=== PATIENT | male | born 1955 | race Hispanic/Latino ===

== ENCOUNTER 2018-02-21 12:41 | Emergency (ER) | payer SELFPAY ==
[~2018-02-21] VITALS: Ht 157.5 cm; Wt 103.8 kg
[2018-02-21 14:00] LABS: HEMATOCRIT 41.6 % (39.0-50.0); HEMOGLOBIN 14.4 g/dl (14.0-18.0); IMMATURE GRANULOCYTES 0.7 % (0.0-5.0); MEAN CELL VOLUME 98.6 fL CALC (80.0-100.0); MEAN CORPUSCULAR HGB 34.1 pG CALC (26.0-32.0); MEAN CORPUSCULAR HGB CONC 34.6 g/L CALC (32.0-36.0); NEUT# 2.55 thou/uL (1.82-7.42); RED BLOOD COUNT 4.22 mill/uL (4.70-6.10); RED CELL DISTRI WIDTH 13.5 % (11.5-15.5)
[2018-02-21 14:08] LABS: ALBUMIN 3.5 g/dL (3.2-5.0); ALKALINE PHOSPHATASE 221 u/l (38-126); ANION GAP 15 (6-22 (CALC)); BILIRUBIN, TOTAL 1.1 mg/dL (0.0-1.4); BUN 11 mg/dL (8-23); BUN/CREATININE RATIO 22 (12-20 (CALC)); CARBON DIOXIDE 24 mmol/l (22-30); CHLORIDE 107 mmol/l (95-108); CREATININE 0.5 mg/dL (0.7-1.3); ETHYL ALCOHOL 163 mg/dl (0-30); GFR > 60 ML/MIN (>=60 (CALC)); GFR FOR AFR.AMER. > 60 ML/MIN (>=60 (CALC)); MAGNESIUM 1.3 mg/dL (1.6-2.3); POTASSIUM 3.8 mmol/l (3.5-5.1); SGOT/AST 90 u/l (19-48); SODIUM 142 mmol/l (137-146); TOTAL PROTEIN 7.4 g/dL (6.3-8.2)
[2018-02-21 14:45] VITALS: BP 141/95
== END 2018-02-21 15:50 | disposition home or self-care (01) | DRG 897 ==
LOC: ED 12:41
PROVIDERS: Emergency Medicine
DX: F10.10 Alcohol abuse, uncomplicated (principal)

== ENCOUNTER 2020-01-18 16:11 | Observation (INO) | payer SELFPAY ==
[~2020-01-18] VITALS: Ht 157.5 cm; Wt 100.0 kg
--- NOTE | 2020-01-18 16:17 | NUR ---
PT TO ROOM VIA EMS. PT STATES THAT HE HAS HAD 12 BEERS TODAY. PT IS UNKEPT AND HOMELESS, PT DENIES ANY COMPLAINTS AT THIS TIME. PT WAS FOUND SITTING BEHIND AN AUTO PART STORE, NO INJURIES OBSERVED.
[2020-01-18 16:41] LABS: ALBUMIN 3.5 g/dL (3.2-5.0); ALKALINE PHOSPHATASE 250 u/l (38-126); AMYLASE 156 u/l (30-110); ANION GAP 13 (6-22 (CALC)); BUN 5 mg/dL (8-23); BUN/CREATININE RATIO 11 (12-20 (CALC)); CARBON DIOXIDE 27 mmol/l (22-30); CHLORIDE 107 mmol/l (95-108); CREATININE 0.5 mg/dL (0.7-1.3); GFR > 60 ML/MIN (>=60 (CALC)); GFR FOR AFR.AMER. > 60 ML/MIN (>=60 (CALC)); LIPASE 587 u/l (23-300); POTASSIUM 3.4 mmol/l (3.5-5.1); SGOT/AST 132 u/l (19-48); SODIUM 144 mmol/l (137-146); TOTAL PROTEIN 7.2 g/dL (6.3-8.2)
[2020-01-18 16:42] LABS: HEMATOCRIT 38.1 % (39.0-50.0); HEMOGLOBIN 12.9 g/dl (14.0-18.0); MEAN CELL VOLUME 97.2 fL CALC (80.0-100.0); MEAN CORPUSCULAR HGB 32.9 pG CALC (26.0-32.0); MEAN CORPUSCULAR HGB CONC 33.9 g/dL CAL (32.0-36.0); NEUT# 1.14 thou/uL (1.82-7.42); RED BLOOD COUNT 3.92 mill/uL (4.70-6.10); RED CELL DISTRI WIDTH 14.6 % (11.5-15.5)
[2020-01-18 16:52] LABS: MYOGLOBIN 133 ng/mL (0 - 121)
[2020-01-18 16:56] LABS: BILIRUBIN, TOTAL 1.6 mg/dL (0.0-1.4); ETHYL ALCOHOL 406 mg/dl (0-30)
--- NOTE | 2020-01-18 17:01 | NUR ---
PT CRAWLED OUT OF BED, PULLED OUT IV, AND BEGAN TO URINATE ON THE FLOOR. PT WAS PLACED BACK IN BED, CLOTHING REMOVED AND PLACED IN GOWN.
[2020-01-18 17:09] LABS: URINE BILIRUBIN - DIPSTICK NEGATIVE (NEGATIVE); URINE BLOOD DIPSTICK NEGATIVE (NEGATIVE); URINE COLOR YELLOW; URINE GLUCOSE - DIPSTICK NEGATIVE (NEGATIVE); URINE KETONE NEGATIVE (NEGATIVE); URINE LEUK ESTERASE TRACE (NEGATIVE); URINE NITRITE - DIPSTICK NEGATIVE (Negative); URINE PH 6.5 (4.5-8.0); URINE PROTEIN - DIPSTICK NEGATIVE (NEG-TRACE); URINE SPECIFIC GRAVITY <=1.005
--- NOTE | 2020-01-18 18:01 | NUR ---
PT ASLEEP ON STRETCHER
--- NOTE | 2020-01-18 19:00 | NUR ---
REPORT GIVEN TO DANG BRIZUELA
--- NOTE | 2020-01-18 19:18 | NUR ---
PT A/O. VOIDED AT BEDSIDE WITH ASSIST. TO CT VIA STRETCHER.
--- NOTE | 2020-01-18 20:12 | NUR ---
PT ATTEMPTING TO GET OUT OF BED....ASSISTED WITH URINAL..AND STILL PULLS OUT OF URINAL AND CONTINUES TO URINATE ON THE FLOOR.
--- NOTE | 2020-01-18 21:00 | NUR ---
PT INCONT OF URINE AND SCANT AMT OF MUSHY STOOL.
--- NOTE | 2020-01-18 21:04 | NUR ---
ANOTHER BED BATH DONE AND PT VOIDED AGAIN.
--- NOTE | 2020-01-18 21:10 | NUR ---
SITTER AT BEDSIDE. PT RESTING. VSS...HR STARTING TO ROTOFORMER BACKTENDER. AFIB.
--- NOTE | 2020-01-18 21:29 | NUR ---
DR COOMBS NOTIFIED OF HR INCREASING TO 130-140/A FIB.
--- NOTE | 2020-01-18 23:03 | NUR ---
AT BEDSIDE TO RE-EVAL. 2ND IV SITE STARTED FOR ANTIBIOTICS. CULTURES OBTAINED BY SELF AND ONE SET BY LAB. PT IS ALERT. CONVERSIVE IN UKRAINIAN WITH E COMMERCE MANAGER. NO NEED TO MEDICATE FOR AFIB UNLESS RATE IS SUSTAINED.
--- NOTE | 2020-01-18 23:10 | NUR ---
DR COOMBS NOTIFIED OF BP 166/99...NO NEED TO MEDICATE/JUST MONITOR.
--- NOTE | 2020-01-18 23:18 | NUR ---
REPORT TO YESI/ICU NURSE.
--- NOTE | 2020-01-18 23:30 | NUR ---
TO ICU FOR MED-SURG OVERFLOW BED. VIA STRETCHER WITH PORTABLE MONITOR. BANANA BAG INFUSING VIA PUMP. 2 NS BAGS INFUSING. ZOSYN READY TO HANG. PT VOIDED A TOTAL OF 1200 CC'S OF URINE AND WAS INCONT IN BED PLUS WHAT MISSED THE URINAL. PT AMBULATED TO BED WITH ASSIST OF 2 NURSES. SOMEWHAT UNSTEADY.
[2020-01-18 23:45] VITALS: BP 168/98
--- NOTE | 2020-01-18 23:45 | NUR ---
RECEVIED FROM ER VIA STRETCHER TO ICU-5. PATIENT ABLE TO AMBULATE WITH ASSIST FROM STRETCHER TO BED. SLT UNSTEADY ON FEET. PLACED ON BUCKET HOOKER SHOWING AFIB, VARIABLE HEART RATE. RESP NON-LABORED, BREATH SOUNDS CLEAR. NO PERIPHERAL EDEMA, PULSES PALPABLE. SALINE LOCK IN RH AND IV IN RFA WITH BANANA BAG INFUSING AT 125 ML/HR. BOTH IV SITES BENIGN. ORIENTED TO SURROUNDINGS AND EXPLAINED PLAN OF CARE. ADMISSION ASSESSMENT COMPLETED. PATIENT IS [place] SPEAKING, FIRE PREVENTION CAPTAIN MARTIN MENDEZ/RN. PATIENT ORIENTED TO SURROUNDINGS. CALL WARD IN REACH.
[2020-01-19] VITALS (8 sets, daily range): BP systolic 106–168; BP diastolic 67–99
--- NOTE | 2020-01-19 00:15 | NUR ---
PT CALLS AND REQUEST STAND BY WHILE SHE USES BSC, PT VOIDED AND MOVED BACK TO BED W/O INCIDENT. BSC EMPTIED OF CLEAR YELLOW URINE. PT STATES "I GUESS IM GOING TO GET A PACEMAKER TUESDAY", ASKED PT IF SHE REMEMBERED DECLINING TRANSFER ON 01/17. PT STATES SHE DOES REMEMBER BUT "I GUESS IF I HAVE TO HAVE IT I'LL HAVE IT". WILL ENDORSE TO NEXT SHIFTS NURSE. PT DENIES FURTHER NEEDS. CALL WARD WITHIN REACH, AGREES TO CALL PRN.
--- NOTE | 2020-01-19 00:15 | NUR ---
VOIDED USING URINAL CLEAR PALE YELLOW URINE.
--- NOTE | 2020-01-19 01:00 | NUR ---
ASLEEP. RESP NON-LABORED AT REST. AFIB ON MONITOR.
--- NOTE | 2020-01-19 02:00 | NUR ---
PATIENT AWAKE, RESTLESS. SITTER AT BEDSIDE ATTEMPTING TO CALM PATIENT WITH VERBAL CUES. REMAINS AFIB ON MONITOR, HR HAD BEEN IN THE 80'S-90'S WHEN ASLEEP, NOW HEART UP TO 140'S-160'S.
--- NOTE | 2020-01-19 02:15 | NUR ---
PATIENT PULLING MONITOR OFF AND ATTEMPTING TO PULL IV OUT. PATIENT STOOD AT SIDE OF BED AND URINATED LARGE AMOUNT ON THE FLOOR. STAFF ATTEMPTED TO HELP PATIENT BACK TO BED AND HE ATTEMPTED TO DRAG THEM DOWN. PATIENT RETURNED TO BED WITH 3 PERSON ASSIST. SOFT WRIST RESTRAINTS APPLIED ORDERED FOR PATIENT AND STAFF SAFETY. MEDICATED WITH ATIVAN 1 MG IVP ORDERED.
--- NOTE | 2020-01-19 02:30 | NUR ---
PATIENT IN BED RESTING QUIETLY AT THIS TIME. REMIANS AFIB, HR COMING DOWN NOW THAT PATIENT IS AT REST.
--- NOTE | 2020-01-19 03:00 | NUR ---
SLEEPING SOUNDLY, SNORING. O2 SAT OCC DROPS TO 88-91% O2 APPLIED AT 2 L NC O2 SAT 97% HR IN THE 90'S WHILE AT REST.
--- NOTE | 2020-01-19 04:00 | NUR ---
RESTING WITH EYES CLOSED AT THIS TIME. VSS. RESP NON-LABORED. O2 ON AT 2 L NC. O2 SAT 98% MONITOR AFIB, HR 90'S. REMAINS IN BILATERAL SOFT WRIST RESTRAINTS.
--- NOTE | 2020-01-19 06:30 | NUR ---
BLOOD DRAWN FOR AM LABS. MONITOR CONTINUES TO SHOW AFIB, HR IMMEDIATELY INCREASES WHEN PATIENT AWAKENS. SOFT WRIST RETRAINTS REMAIN IN PLACE.
[2020-01-19 06:42] LABS: HEMATOCRIT 39.1 % (39.0-50.0); HEMOGLOBIN 13.5 g/dl (14.0-18.0); MEAN CORPUSCULAR HGB 34.5 pG CALC (26.0-32.0); RED BLOOD COUNT 3.91 mill/uL (4.70-6.10)
[2020-01-19 06:43] LABS: MEAN CORPUSCULAR HGB CONC 34.5 g/dL CAL (32.0-36.0); RED CELL DISTRI WIDTH 15.2 % (11.5-15.5)
[2020-01-19 06:44] LABS: NEUT# 1.4 thou/uL (1.82-7.42)
[2020-01-19 06:55] LABS: ALKALINE PHOSPHATASE 149 u/l (38-126); ANION GAP 8 (6-22 (CALC)); BUN 4 mg/dL (8-23); BUN/CREATININE RATIO 9 (12-20 (CALC)); CARBON DIOXIDE 29 mmol/l (22-30); CHLORIDE 112 mmol/l (95-108); CREATININE 0.4 mg/dL (0.7-1.3); GFR > 60 ML/MIN (>=60 (CALC)); GFR FOR AFR.AMER. > 60 ML/MIN (>=60 (CALC)); POTASSIUM 3.4 mmol/l (3.5-5.1); SGOT/AST 110 u/l (19-48); SODIUM 146 mmol/l (137-146); TOTAL PROTEIN 6.5 g/dL (6.3-8.2)
--- NOTE | 2020-01-19 07:30 | NUR ---
PT RESTING IN BED, NO SIGNS OF DISTRESS NOTED, RESP EVEN AND UNLABORED. PT ALERT AND ORIENTED TO PERSON AND PLACE BUT NOT TIME, DISCUSSED POC, PT UZBEK SPEAKING, EXPANDING MACHINE OPERATOR UZBEK SPEAKING. PT AGREED TO POC, PT IS NPO UNTIL EVALUATED BY MD. MOUTH SWABS GIVEN, PT REMOVED FROM RESTRAINTS AT THIS TIME. ASSESSMENT COMPLETED, CALL LIGHT IN REACH,SITTER AT BEDSIDE, CONTINUE TO MONITOR.
--- NOTE | 2020-01-19 09:26 | NUR ---
PT GETTING UP OUT OF BED, SITTER AT BEDSIDE ASSISTING PT TO USE URINAL. PT ASKING FOR WATER, INFORMED PT AWAITING UNTIL SEEN BY MD. PT LAYED BACK IN BED WITH EYES CLOSED. CALL LIGHT IN REACH,CONTINUE TO MONITOR.
--- NOTE | 2020-01-19 09:34 | NUR ---
PT SITTING UP NOTED TREMORS ARE MORE SEVERE, PT MEDICATED WITH ATIVAN AT THIS TIME. CALL LIGHT IN REACH, SITTER AT BEDSIDE, CONTINUE TO MONITOR.
--- NOTE | 2020-01-19 11:27 | NUR ---
STATE GAME PROTECTOR AT BEDSIDE, TO DISCUSS POC, DELIVERY SUPERVISOR AT BEDSIDE. PT STATES HE IS HOMELESS AND NEEDS HELP FOR HOUSING, STATE GAME PROTECTOR ASKED IF PT WOULD LIKE TO RETURN TO [place], PT STATES THAT IF HE COULD GET ASSISTANCE TO [place] HE WOULD GO.
--- NOTE | 2020-01-19 12:28 | NUR ---
DISCUSSED NEW MEDICATION WITH PT, PG AGREES TO TAKE MEDICATION. PT SITTING ON SIDE OF BED EATING LUNCH. CONTINUE TO MONITOR.
[2020-01-19 13:10] LABS: INTERNATIONAL NORMALIZED RATIO 1.2 RATIO (0.7-1.3); PROTHROMBIN TIME 11.8 SECONDS (9.0-12.5)
--- NOTE | 2020-01-19 13:20 | NUR ---
PT RESTING IN BED, NO SIGNS OF DISTRESS NOTED, RESP EVEN AND UNLABORED. PT MEDICATED PER MAR. DISCUSSED MEDICATIONS WITH PT, PT ASKS WHEN WILL HE BE DISCHARGED INFORMED PT NOT TODAY, PT VERBALIZED UNDERSTANDING. CALL LIGHT IN REACH,CONTINUE TO MONITOR.
--- NOTE | 2020-01-19 14:38 | NUR ---
PT RESTING IN BED, DISCUSSED ANTIBIOTIC, PT VERBALIZED UNDERSTANDING. CALL LIGHT IN REACH,CONTINUE TO MONITOR.
--- NOTE | 2020-01-19 17:20 | NUR ---
PT GETTING OUT OF BED PULLING LINES, PT ASKING TO LEAVE INFORMED PT THAT HE HAS THE RIGHT TO LEAVE AT ANY TIME, PT STATES HE IS FRUSTRATED WITH THIS PLACE AND WANTS TO LEAVE, PT PULLED OUT HIS IV, AMA FORM GIVEN PT SIGNED. CALL MADE TO NOTIFIED. IV CATHETER INTACT. WRAPPED WITH COBAN. DINNER AND SCRUBS PROVIDED. PT'S BELONGINGS PLACED IN BELONGINGS BAG DUE TO CLOTHES BEING WET. PT EATING DINNER CONTINUE TO MONITOR.
--- NOTE | 2020-01-19 17:40 | NUR ---
CALLED AND NOTIFIED PT HE WAS CONSULTED FOR IS LEAVING A.
--- NOTE | 2020-01-19 17:44 | NUR ---
Discharge instructions given. Patient verbalizes understanding of same. Discharged in stable condition via Wheelchair to [facility] as pt requested with i. All belongings sent with pt.
== END 2020-01-19 17:45 | disposition left against medical advice (07) | DRG 894 ==
LOC: ED 16:11 → ED-I 17:14 → ED 17:14 → ED-I 20:04 → ED 22:44 → ICU 22:54 → ED 22:54 → ICU 01-19 17:45
PROVIDERS: Emergency Medicine; ADMIT Internal Medicine; ATTEND Internal Medicine
DX: F10.229 Alcohol dependence with intoxication, unspecified (principal); D61.818 Other pancytopenia; I48.91 Unspecified atrial fibrillation; G31.2 Degeneration of nervous system due to alcohol; K70.30 Alcoholic cirrhosis of liver without ascites; K80.20 Calculus of gallbladder without cholecystitis without obstruction; K75.9 Inflammatory liver disease, unspecified; R76.8 Other specified abnormal immunological findings in serum; Z59.0 Homelessness; Z20.828 Contact with and (suspected) exposure to other viral communicable diseases
CPT/HCPCS: J2060; Q9967

== ENCOUNTER 2020-02-02 18:18 | Inpatient (IN) | payer SELFPAY ==
[~2020-02-02] VITALS: Ht 157.5 cm; Wt 85.1 kg
[2020-02-02 19:53] LABS: HEMATOCRIT 41.7 % (39.0-50.0); HEMOGLOBIN 15.2 g/dl (14.0-18.0); MEAN CELL VOLUME 94.6 fL CALC (80.0-100.0); MEAN CORPUSCULAR HGB 34.5 pG CALC (26.0-32.0); MEAN CORPUSCULAR HGB CONC 36.5 g/dL CAL (32.0-36.0); NEUT# 10.75 thou/uL (1.82-7.42); RED BLOOD COUNT 4.41 mill/uL (4.70-6.10); RED CELL DISTRI WIDTH 13.4 % (11.5-15.5)
[2020-02-02 20:01] LABS: INTERNATIONAL NORMALIZED RATIO 1.4 RATIO (0.7-1.3); PROTHROMBIN TIME 13.7 SECONDS (9.0-12.5)
[2020-02-02 20:03] LABS: ALKALINE PHOSPHATASE 103 u/l (38-126); BUN 18 mg/dL (8-23); BUN/CREATININE RATIO 22 (12-20 (CALC)); CARBON DIOXIDE 24 mmol/l (22-30); CREATININE 0.8 mg/dL (0.7-1.3); GFR > 60 ML/MIN (>=60 (CALC)); GFR FOR AFR.AMER. > 60 ML/MIN (>=60 (CALC)); LIPASE 58 u/l (23-300); SGOT/AST 86 u/l (19-48); TOTAL PROTEIN 6.5 g/dL (6.3-8.2)
[2020-02-02 20:09] LABS: ANION GAP 18 (6-22 (CALC)); BILIRUBIN, TOTAL 3.7 mg/dL (0.0-1.4); CHLORIDE 90 mmol/l (95-108); POTASSIUM 2.6 mmol/l (3.5-5.1); SODIUM 129 mmol/l (137-146)
[2020-02-02 20:24] LABS: ETHYL ALCOHOL 154 mg/dl (0-30)
[2020-02-02 21:38] LABS: URINE BILIRUBIN - DIPSTICK NEGATIVE (NEGATIVE); URINE BLOOD DIPSTICK MODERATE (NEGATIVE); URINE COLOR YELLOW; URINE GLUCOSE - DIPSTICK NEGATIVE (NEGATIVE); URINE KETONE NEGATIVE (NEGATIVE); URINE LEUK ESTERASE NEGATIVE (NEGATIVE); URINE NITRITE - DIPSTICK NEGATIVE (Negative); URINE PROTEIN - DIPSTICK TRACE mg/dL (NEG-TRACE)
[2020-02-02 22:03] LABS: URINE SQUAMOUS EPITHELIAL CELL FEW EPI/hpf (0-FEW)
[2020-02-03] VITALS (14 sets, daily range): BP systolic 97–141; BP diastolic 52–86
[2020-02-03 04:35] LABS: ALKALINE PHOSPHATASE 69 u/l (38-126); BILIRUBIN, TOTAL 2.9 mg/dL (0.0-1.4); BUN 17 mg/dL (8-23); BUN/CREATININE RATIO 22 (12-20 (CALC)); CARBON DIOXIDE 23 mmol/l (22-30); CHLORIDE 100 mmol/l (95-108); CREATININE 0.7 mg/dL (0.7-1.3); GFR > 60 ML/MIN (>=60 (CALC)); GFR FOR AFR.AMER. > 60 ML/MIN (>=60 (CALC)); SGOT/AST 59 u/l (19-48); SODIUM 132 mmol/l (137-146)
[2020-02-03 05:14] LABS: ALBUMIN 2.2 g/dL (3.2-5.0); ANION GAP 11 (6-22 (CALC)); POTASSIUM 2.2 mmol/l (3.5-5.1)
[2020-02-04] VITALS (19 sets, daily range): BP systolic 124–181; BP diastolic 73–117
[2020-02-04 05:34] LABS: IMMATURE GRANULOCYTES 1.1 % (0.0-5.0); MEAN CELL VOLUME 97.3 fL CALC (80.0-100.0); MEAN CORPUSCULAR HGB 34.1 pG CALC (26.0-32.0); NEUT# 13.64 thou/uL (1.82-7.42); RED BLOOD COUNT 3.7 mill/uL (4.70-6.10); RED CELL DISTRI WIDTH 14.5 % (11.5-15.5)
[2020-02-04 05:46] LABS: ALBUMIN 2.1 g/dL (3.2-5.0); ALKALINE PHOSPHATASE 87 u/l (38-126); ANION GAP 9 (6-22 (CALC)); BILIRUBIN, TOTAL 2.7 mg/dL (0.0-1.4); BUN 21 mg/dL (8-23); BUN/CREATININE RATIO 24 (12-20 (CALC)); CARBON DIOXIDE 24 mmol/l (22-30); CHLORIDE 107 mmol/l (95-108); CREATININE 0.9 mg/dL (0.7-1.3); GFR > 60 ML/MIN (>=60 (CALC)); GFR FOR AFR.AMER. > 60 ML/MIN (>=60 (CALC)); HEMOGLOBIN 12.6 g/dl (14.0-18.0); MAGNESIUM 1.6 mg/dL (1.6-2.3); SGOT/AST 60 u/l (19-48); SODIUM 137 mmol/l (137-146); TOTAL PROTEIN 4.9 g/dL (6.3-8.2)
[2020-02-05] VITALS (9 sets, daily range): BP systolic 136–176; BP diastolic 88–109
[2020-02-05 05:05] LABS: HEMATOCRIT 40.8 % (39.0-50.0); IMMATURE GRANULOCYTES 1.2 % (0.0-5.0); MEAN CELL VOLUME 96.7 fL CALC (80.0-100.0); MEAN CORPUSCULAR HGB 33.2 pG CALC (26.0-32.0); MEAN CORPUSCULAR HGB CONC 34.3 g/dL CAL (32.0-36.0); NEUT# 7.41 thou/uL (1.82-7.42); RED BLOOD COUNT 4.22 mill/uL (4.70-6.10); RED CELL DISTRI WIDTH 14.6 % (11.5-15.5)
[2020-02-05 05:26] LABS: ALBUMIN 2.3 g/dL (3.2-5.0); ALKALINE PHOSPHATASE 93 u/l (38-126); ANION GAP 8 (6-22 (CALC)); BILIRUBIN, TOTAL 3.7 mg/dL (0.0-1.4); BUN 21 mg/dL (8-23); BUN/CREATININE RATIO 22 (12-20 (CALC)); CARBON DIOXIDE 28 mmol/l (22-30); CHLORIDE 112 mmol/l (95-108); CREATININE 0.9 mg/dL (0.7-1.3); GFR > 60 ML/MIN (>=60 (CALC)); GFR FOR AFR.AMER. > 60 ML/MIN (>=60 (CALC)); MAGNESIUM 1.2 mg/dL (1.6-2.3); SGOT/AST 65 u/l (19-48); SODIUM 145 mmol/l (137-146); TOTAL PROTEIN 5.5 g/dL (6.3-8.2)
[2020-02-06] VITALS (25 sets, daily range): BP systolic 123–177; BP diastolic 78–117
[2020-02-06 05:33] LABS: HEMATOCRIT 39.1 % (39.0-50.0); HEMOGLOBIN 13.6 g/dl (14.0-18.0); IMMATURE GRANULOCYTES 1.8 % (0.0-5.0); MEAN CORPUSCULAR HGB 34.1 pG CALC (26.0-32.0); MEAN CORPUSCULAR HGB CONC 34.8 g/dL CAL (32.0-36.0); NEUT# 4.78 thou/uL (1.82-7.42); RED BLOOD COUNT 3.99 mill/uL (4.70-6.10); RED CELL DISTRI WIDTH 15.4 % (11.5-15.5)
[2020-02-06 05:34] LABS: ALKALINE PHOSPHATASE 66 u/l (38-126); ANION GAP 6 (6-22 (CALC)); BILIRUBIN, TOTAL 3.2 mg/dL (0.0-1.4); BUN 22 mg/dL (8-23); BUN/CREATININE RATIO 24 (12-20 (CALC)); CARBON DIOXIDE 26 mmol/l (22-30); CHLORIDE 119 mmol/l (95-108); CREATININE 0.9 mg/dL (0.7-1.3); GFR > 60 ML/MIN (>=60 (CALC)); GFR FOR AFR.AMER. > 60 ML/MIN (>=60 (CALC)); MAGNESIUM 1.5 mg/dL (1.6-2.3); POTASSIUM 3.2 mmol/l (3.5-5.1); SGOT/AST 39 u/l (19-48); SODIUM 149 mmol/l (137-146); TOTAL PROTEIN 5.2 g/dL (6.3-8.2)
[2020-02-07] VITALS (22 sets, daily range): BP systolic 137–178; BP diastolic 83–127
[2020-02-07 06:43] LABS: HEMATOCRIT 38.8 % (39.0-50.0); HEMOGLOBIN 12.9 g/dl (14.0-18.0); IMMATURE GRANULOCYTES 3.1 % (0.0-5.0); MEAN CELL VOLUME 100.8 fL CALC (80.0-100.0); MEAN CORPUSCULAR HGB 33.5 pG CALC (26.0-32.0); MEAN CORPUSCULAR HGB CONC 33.2 g/dL CAL (32.0-36.0); NEUT# 3.88 thou/uL (1.82-7.42); RED BLOOD COUNT 3.85 mill/uL (4.70-6.10); RED CELL DISTRI WIDTH 15.1 % (11.5-15.5)
[2020-02-07 06:54] LABS: ALBUMIN 2.1 g/dL (3.2-5.0); ALKALINE PHOSPHATASE 65 u/l (38-126); ANION GAP 7 (6-22 (CALC)); BILIRUBIN, TOTAL 2.6 mg/dL (0.0-1.4); BUN 17 mg/dL (8-23); BUN/CREATININE RATIO 21 (12-20 (CALC)); CARBON DIOXIDE 25 mmol/l (22-30); CHLORIDE 123 mmol/l (95-108); CREATININE 0.8 mg/dL (0.7-1.3); GFR > 60 ML/MIN (>=60 (CALC)); GFR FOR AFR.AMER. > 60 ML/MIN (>=60 (CALC)); POTASSIUM 3.5 mmol/l (3.5-5.1); SGOT/AST 39 u/l (19-48); SODIUM 152 mmol/l (137-146); TOTAL PROTEIN 5.4 g/dL (6.3-8.2)
[2020-02-08] VITALS (20 sets, daily range): BP systolic 135–190; BP diastolic 77–110
[2020-02-08 06:39] LABS: HEMATOCRIT 40.4 % (39.0-50.0); HEMOGLOBIN 13.4 g/dl (14.0-18.0); MEAN CELL VOLUME 101.5 fL CALC (80.0-100.0); MEAN CORPUSCULAR HGB 33.7 pG CALC (26.0-32.0); MEAN CORPUSCULAR HGB CONC 33.2 g/dL CAL (32.0-36.0); RED BLOOD COUNT 3.98 mill/uL (4.70-6.10); RED CELL DISTRI WIDTH 15.2 % (11.5-15.5)
[2020-02-08 10:54] LABS: ALBUMIN 2.2 g/dL (3.2-5.0); ALKALINE PHOSPHATASE 74 u/l (38-126); ANION GAP 7 (6-22 (CALC)); BILIRUBIN, TOTAL 2.4 mg/dL (0.0-1.4); BUN 15 mg/dL (8-23); BUN/CREATININE RATIO 19 (12-20 (CALC)); CARBON DIOXIDE 27 mmol/l (22-30); CHLORIDE 120 mmol/l (95-108); CREATININE 0.8 mg/dL (0.7-1.3); GFR > 60 ML/MIN (>=60 (CALC)); GFR FOR AFR.AMER. > 60 ML/MIN (>=60 (CALC)); POTASSIUM 3.4 mmol/l (3.5-5.1); SGOT/AST 31 u/l (19-48); SODIUM 151 mmol/l (137-146); TOTAL PROTEIN 5.8 g/dL (6.3-8.2)
[2020-02-09] VITALS (14 sets, daily range): BP systolic 111–149; BP diastolic 70–105
[2020-02-09 05:37] LABS: HEMATOCRIT 41.2 % (39.0-50.0); HEMOGLOBIN 13.7 g/dl (14.0-18.0); MEAN CELL VOLUME 101.2 fL CALC (80.0-100.0); MEAN CORPUSCULAR HGB 33.7 pG CALC (26.0-32.0); MEAN CORPUSCULAR HGB CONC 33.3 g/dL CAL (32.0-36.0); RED BLOOD COUNT 4.07 mill/uL (4.70-6.10); RED CELL DISTRI WIDTH 14.9 % (11.5-15.5)
[2020-02-09 06:23] LABS: ALBUMIN 2.1 g/dL (3.2-5.0); ALKALINE PHOSPHATASE 66 u/l (38-126); ANION GAP 5 (6-22 (CALC)); BUN 16 mg/dL (8-23); BUN/CREATININE RATIO 22 (12-20 (CALC)); CARBON DIOXIDE 29 mmol/l (22-30); CHLORIDE 116 mmol/l (95-108); CREATININE 0.8 mg/dL (0.7-1.3); GFR > 60 ML/MIN (>=60 (CALC)); GFR FOR AFR.AMER. > 60 ML/MIN (>=60 (CALC)); POTASSIUM 3.4 mmol/l (3.5-5.1); SGOT/AST 22 u/l (19-48); SODIUM 147 mmol/l (137-146); TOTAL PROTEIN 5.7 g/dL (6.3-8.2)
[2020-02-09 06:27] LABS: BILIRUBIN, TOTAL 1.4 mg/dL (0.0-1.4)
[2020-02-09 19:40] LABS: POTASSIUM 3.8 mmol/l (3.5-5.1)
[2020-02-09 19:41] LABS: MAGNESIUM 1.8 mg/dL (1.6-2.3)
[2020-02-10] VITALS (11 sets, daily range): BP systolic 112–157; BP diastolic 66–93
[2020-02-10 04:47] LABS: HEMATOCRIT 41.2 % (39.0-50.0); HEMOGLOBIN 13.8 g/dl (14.0-18.0); IMMATURE GRANULOCYTES 1.3 % (0.0-5.0); MEAN CELL VOLUME 99.8 fL CALC (80.0-100.0); MEAN CORPUSCULAR HGB 33.4 pG CALC (26.0-32.0); MEAN CORPUSCULAR HGB CONC 33.5 g/dL CAL (32.0-36.0); NEUT# 6.39 thou/uL (1.82-7.42); RED BLOOD COUNT 4.13 mill/uL (4.70-6.10); RED CELL DISTRI WIDTH 14.5 % (11.5-15.5)
[2020-02-10 05:21] LABS: ANION GAP 8 (6-22 (CALC)); BUN 17 mg/dL (8-23); BUN/CREATININE RATIO 24 (12-20 (CALC)); CARBON DIOXIDE 26 mmol/l (22-30); CHLORIDE 108 mmol/l (95-108); CREATININE 0.7 mg/dL (0.7-1.3); GFR > 60 ML/MIN (>=60 (CALC)); GFR FOR AFR.AMER. > 60 ML/MIN (>=60 (CALC)); POTASSIUM 3.5 mmol/l (3.5-5.1)
[2020-02-10 05:23] LABS: SODIUM 138 mmol/l (137-146)
[2020-02-11] VITALS (10 sets, daily range): BP systolic 111–151; BP diastolic 77–92
[2020-02-11 05:05] LABS: HEMATOCRIT 41.7 % (39.0-50.0); HEMOGLOBIN 14.2 g/dl (14.0-18.0); IMMATURE GRANULOCYTES 1.4 % (0.0-5.0); MEAN CELL VOLUME 98.8 fL CALC (80.0-100.0); MEAN CORPUSCULAR HGB 33.6 pG CALC (26.0-32.0); MEAN CORPUSCULAR HGB CONC 34.1 g/dL CAL (32.0-36.0); NEUT# 8.45 thou/uL (1.82-7.42); RED BLOOD COUNT 4.22 mill/uL (4.70-6.10); RED CELL DISTRI WIDTH 14.2 % (11.5-15.5)
[2020-02-11 08:24] LABS: ANION GAP 5 (6-22 (CALC)); BUN 17 mg/dL (8-23); BUN/CREATININE RATIO 24 (12-20 (CALC)); CARBON DIOXIDE 28 mmol/l (22-30); CHLORIDE 106 mmol/l (95-108); CREATININE 0.7 mg/dL (0.7-1.3); GFR > 60 ML/MIN (>=60 (CALC)); GFR FOR AFR.AMER. > 60 ML/MIN (>=60 (CALC)); POTASSIUM 3.3 mmol/l (3.5-5.1); SODIUM 136 mmol/l (137-146)
[2020-02-12 05:27] VITALS: BP 154/96
[2020-02-12 06:12] LABS: HEMATOCRIT 40.8 % (39.0-50.0); HEMOGLOBIN 13.8 g/dl (14.0-18.0); MEAN CELL VOLUME 99.5 fL CALC (80.0-100.0); MEAN CORPUSCULAR HGB 33.7 pG CALC (26.0-32.0); MEAN CORPUSCULAR HGB CONC 33.8 g/dL CAL (32.0-36.0); RED BLOOD COUNT 4.1 mill/uL (4.70-6.10)
[2020-02-12 06:35] LABS: ALBUMIN 2.2 g/dL (3.2-5.0); ALKALINE PHOSPHATASE 79 u/l (38-126); ANION GAP 8 (6-22 (CALC)); BILIRUBIN, TOTAL 1.6 mg/dL (0.0-1.4); BUN 16 mg/dL (8-23); BUN/CREATININE RATIO 26 (12-20 (CALC)); CARBON DIOXIDE 24 mmol/l (22-30); CHLORIDE 106 mmol/l (95-108); CREATININE 0.6 mg/dL (0.7-1.3); GFR > 60 ML/MIN (>=60 (CALC)); GFR FOR AFR.AMER. > 60 ML/MIN (>=60 (CALC)); SGOT/AST 33 u/l (19-48); SODIUM 134 mmol/l (137-146); TOTAL PROTEIN 5.9 g/dL (6.3-8.2)
[2020-02-12 06:40] LABS: POTASSIUM 4.2 mmol/l (3.5-5.1)
[2020-02-12 07:30] VITALS: BP 144/93
[2020-02-12 10:49] VITALS: BP 133/80
[2020-02-12 15:00] VITALS: BP 126/93
[2020-02-12 18:53] VITALS: BP 119/78
[2020-02-12 23:50] VITALS: BP 122/74
[2020-02-13] VITALS (7 sets, daily range): BP systolic 98–122; BP diastolic 56–93
[2020-02-13 05:26] LABS: HEMATOCRIT 40.3 % (39.0-50.0); HEMOGLOBIN 13.6 g/dl (14.0-18.0); IMMATURE GRANULOCYTES 3.2 % (0.0-5.0); MEAN CELL VOLUME 99.3 fL CALC (80.0-100.0); MEAN CORPUSCULAR HGB 33.5 pG CALC (26.0-32.0); MEAN CORPUSCULAR HGB CONC 33.7 g/dL CAL (32.0-36.0); NEUT# 4.93 thou/uL (1.82-7.42); RED BLOOD COUNT 4.06 mill/uL (4.70-6.10); RED CELL DISTRI WIDTH 14.2 % (11.5-15.5)
[2020-02-13 05:50] LABS: ANION GAP 8 (6-22 (CALC)); BUN 20 mg/dL (8-23); BUN/CREATININE RATIO 25 (12-20 (CALC)); CARBON DIOXIDE 25 mmol/l (22-30); CHLORIDE 109 mmol/l (95-108); CREATININE 0.8 mg/dL (0.7-1.3); GFR > 60 ML/MIN (>=60 (CALC)); GFR FOR AFR.AMER. > 60 ML/MIN (>=60 (CALC)); MAGNESIUM 1.4 mg/dL (1.6-2.3); POTASSIUM 3.6 mmol/l (3.5-5.1); SODIUM 138 mmol/l (137-146)
[2020-02-14] VITALS (8 sets, daily range): BP systolic 96–131; BP diastolic 48–88
[2020-02-15 04:25] VITALS: BP 115/64
[2020-02-15 08:48] VITALS: BP 128/88
[2020-02-15 11:00] VITALS: BP 90/47
[2020-02-15 15:16] VITALS: BP 106/55
[2020-02-15 19:25] VITALS: BP 112/69
[2020-02-15 23:55] VITALS: BP 123/73
[2020-02-16 04:10] VITALS: BP 129/82
[2020-02-16 04:49] LABS: HEMOGLOBIN 13.2 g/dl (14.0-18.0); MEAN CELL VOLUME 102.6 fL CALC (80.0-100.0); MEAN CORPUSCULAR HGB 33.8 pG CALC (26.0-32.0); RED BLOOD COUNT 3.9 mill/uL (4.70-6.10); RED CELL DISTRI WIDTH 14.1 % (11.5-15.5)
[2020-02-16 05:22] LABS: ALBUMIN 2.1 g/dL (3.2-5.0); ALKALINE PHOSPHATASE 91 u/l (38-126); ANION GAP 8 (6-22 (CALC)); BILIRUBIN, TOTAL 1.9 mg/dL (0.0-1.4); BUN 12 mg/dL (8-23); BUN/CREATININE RATIO 20 (12-20 (CALC)); CARBON DIOXIDE 24 mmol/l (22-30); CHLORIDE 108 mmol/l (95-108); CREATININE 0.6 mg/dL (0.7-1.3); GFR > 60 ML/MIN (>=60 (CALC)); GFR FOR AFR.AMER. > 60 ML/MIN (>=60 (CALC)); POTASSIUM 4.1 mmol/l (3.5-5.1); SGOT/AST 34 u/l (19-48); SODIUM 136 mmol/l (137-146); TOTAL PROTEIN 5.5 g/dL (6.3-8.2)
[2020-02-16 07:33] VITALS: BP 121/80
[2020-02-16 11:01] VITALS: BP 95/41
[2020-02-16 14:30] VITALS: BP 105/40
[2020-02-16 19:40] VITALS: BP 99/57
[2020-02-16 23:20] VITALS: BP 113/61
[2020-02-17 04:10] VITALS: BP 108/78
[2020-02-17 07:42] VITALS: BP 122/72
[2020-02-17 11:00] VITALS: BP 109/62
[2020-02-17 14:30] VITALS: BP 111/62
[2020-02-17 18:53] VITALS: BP 109/79
[2020-02-18 00:35] VITALS: BP 126/73
[2020-02-18 04:30] VITALS: BP 141/88
[2020-02-18 06:35] LABS: HEMOGLOBIN 12.1 g/dl (14.0-18.0); IMMATURE GRANULOCYTES 1.4 % (0.0-5.0); MEAN CORPUSCULAR HGB 34.3 pG CALC (26.0-32.0); MEAN CORPUSCULAR HGB CONC 33.6 g/dL CAL (32.0-36.0); NEUT# 1.74 thou/uL (1.82-7.42); RED BLOOD COUNT 3.53 mill/uL (4.70-6.10); RED CELL DISTRI WIDTH 13.9 % (11.5-15.5)
[2020-02-18 07:14] LABS: ANION GAP 7 (6-22 (CALC)); BUN 11 mg/dL (8-23); BUN/CREATININE RATIO 18 (12-20 (CALC)); CARBON DIOXIDE 25 mmol/l (22-30); CHLORIDE 106 mmol/l (95-108); CREATININE 0.6 mg/dL (0.7-1.3); GFR > 60 ML/MIN (>=60 (CALC)); GFR FOR AFR.AMER. > 60 ML/MIN (>=60 (CALC)); MAGNESIUM 1.3 mg/dL (1.6-2.3); POTASSIUM 3.8 mmol/l (3.5-5.1); SODIUM 135 mmol/l (137-146)
[2020-02-18 07:31] VITALS: BP 120/77
[2020-02-18 10:30] VITALS: BP 94/52
[2020-02-18 15:00] VITALS: BP 99/70
[2020-02-18 19:01] VITALS: BP 109/70
[2020-02-19 03:14] VITALS: BP 107/64
[2020-02-19 07:31] VITALS: BP 133/74
[2020-02-19 10:02] LABS: ANION GAP 6 (6-22 (CALC)); BUN 12 mg/dL (8-23); BUN/CREATININE RATIO 18 (12-20 (CALC)); CARBON DIOXIDE 25 mmol/l (22-30); CHLORIDE 107 mmol/l (95-108); CREATININE 0.6 mg/dL (0.7-1.3); GFR > 60 ML/MIN (>=60 (CALC)); GFR FOR AFR.AMER. > 60 ML/MIN (>=60 (CALC)); MAGNESIUM 1.4 mg/dL (1.6-2.3); POTASSIUM 3.8 mmol/l (3.5-5.1); SODIUM 135 mmol/l (137-146)
[2020-02-19 11:00] VITALS: BP 95/56
[2020-02-19 15:20] VITALS: BP 103/61
[2020-02-19 18:45] VITALS: BP 117/74
[2020-02-20] VITALS: BP 128/65
[2020-02-20 04:00] VITALS: BP 124/75
[2020-02-20 05:49] LABS: ALBUMIN 2.2 g/dL (3.2-5.0); ALKALINE PHOSPHATASE 123 u/l (38-126); ANION GAP 3 (6-22 (CALC)); BUN 10 mg/dL (8-23); BUN/CREATININE RATIO 17 (12-20 (CALC)); CARBON DIOXIDE 27 mmol/l (22-30); CHLORIDE 111 mmol/l (95-108); CREATININE 0.6 mg/dL (0.7-1.3); GFR > 60 ML/MIN (>=60 (CALC)); GFR FOR AFR.AMER. > 60 ML/MIN (>=60 (CALC)); MAGNESIUM 1.4 mg/dL (1.6-2.3); POTASSIUM 4.1 mmol/l (3.5-5.1); SGOT/AST 27 u/l (19-48); SODIUM 137 mmol/l (137-146); TOTAL PROTEIN 5.5 g/dL (6.3-8.2)
[2020-02-20 06:00] LABS: BILIRUBIN, TOTAL 0.7 mg/dL (0.0-1.4)
[2020-02-20 07:41] VITALS: BP 113/78
[2020-02-20 11:00] VITALS: BP 93/58
[2020-02-20 15:00] VITALS: BP 106/66
[2020-02-20 18:44] VITALS: BP 131/75
[2020-02-21 00:27] VITALS: BP 107/54
[2020-02-21 04:20] VITALS: BP 127/72
[2020-02-21 07:37] VITALS: BP 119/68
[2020-02-21 12:12] VITALS: BP 100/54
[2020-02-21 16:55] VITALS: BP 88/55
[2020-02-21 19:28] VITALS: BP 120/76
[2020-02-22 00:22] VITALS: BP 97/64
[2020-02-22 04:55] VITALS: BP 131/83
[2020-02-22 05:44] LABS: HEMATOCRIT 33.7 % (39.0-50.0); HEMOGLOBIN 11.3 g/dl (14.0-18.0); MEAN CELL VOLUME 101.2 fL CALC (80.0-100.0); MEAN CORPUSCULAR HGB 33.9 pG CALC (26.0-32.0); MEAN CORPUSCULAR HGB CONC 33.5 g/dL CAL (32.0-36.0); RED BLOOD COUNT 3.33 mill/uL (4.70-6.10); RED CELL DISTRI WIDTH 13.4 % (11.5-15.5)
[2020-02-22 05:59] LABS: ALBUMIN 2.3 g/dL (3.2-5.0); ALKALINE PHOSPHATASE 127 u/l (38-126); ANION GAP 7 (6-22 (CALC)); BILIRUBIN, TOTAL 0.5 mg/dL (0.0-1.4); BUN 11 mg/dL (8-23); BUN/CREATININE RATIO 18 (12-20 (CALC)); CARBON DIOXIDE 26 mmol/l (22-30); CHLORIDE 106 mmol/l (95-108); CREATININE 0.6 mg/dL (0.7-1.3); GFR > 60 ML/MIN (>=60 (CALC)); GFR FOR AFR.AMER. > 60 ML/MIN (>=60 (CALC)); MAGNESIUM 1.2 mg/dL (1.6-2.3); SGOT/AST 23 u/l (19-48); SODIUM 135 mmol/l (137-146); TOTAL PROTEIN 5.7 g/dL (6.3-8.2)
[2020-02-22 08:47] VITALS: BP 134/84
[2020-02-22 10:40] VITALS: BP 119/65
[2020-02-22 15:45] VITALS: BP 117/70
[2020-02-22 20:00] VITALS: BP 110/62
[2020-02-23] VITALS (7 sets, daily range): BP systolic 106–126; BP diastolic 64–81
[2020-02-23 09:44] LABS: ANION GAP 8 (6-22 (CALC)); BUN 9 mg/dL (8-23); BUN/CREATININE RATIO 15 (12-20 (CALC)); CARBON DIOXIDE 25 mmol/l (22-30); CHLORIDE 107 mmol/l (95-108); CREATININE 0.6 mg/dL (0.7-1.3); GFR > 60 ML/MIN (>=60 (CALC)); GFR FOR AFR.AMER. > 60 ML/MIN (>=60 (CALC)); MAGNESIUM 1.4 mg/dL (1.6-2.3); SODIUM 137 mmol/l (137-146)
[2020-02-24 04:15] VITALS: BP 133/83
[2020-02-24 05:45] LABS: HEMATOCRIT 34.4 % (39.0-50.0); HEMOGLOBIN 11.7 g/dl (14.0-18.0); MEAN CELL VOLUME 100.6 fL CALC (80.0-100.0); MEAN CORPUSCULAR HGB 34.2 pG CALC (26.0-32.0); RED BLOOD COUNT 3.42 mill/uL (4.70-6.10); RED CELL DISTRI WIDTH 13.5 % (11.5-15.5)
[2020-02-24 06:11] LABS: ANION GAP 7 (6-22 (CALC)); BUN 12 mg/dL (8-23); BUN/CREATININE RATIO 19 (12-20 (CALC)); CARBON DIOXIDE 26 mmol/l (22-30); CHLORIDE 107 mmol/l (95-108); CREATININE 0.6 mg/dL (0.7-1.3); GFR > 60 ML/MIN (>=60 (CALC)); GFR FOR AFR.AMER. > 60 ML/MIN (>=60 (CALC)); MAGNESIUM 1.4 mg/dL (1.6-2.3); SODIUM 137 mmol/l (137-146)
[2020-02-24 07:23] VITALS: BP 129/70
[2020-02-24 10:30] VITALS: BP 129/77
[2020-02-24 14:35] VITALS: BP 109/59
[2020-02-24 19:00] VITALS: BP 99/53
[2020-02-25] VITALS (7 sets, daily range): BP systolic 106–139; BP diastolic 60–81
[2020-02-25 05:03] LABS: ANION GAP 10 (6-22 (CALC)); BUN 11 mg/dL (8-23); BUN/CREATININE RATIO 20 (12-20 (CALC)); CARBON DIOXIDE 25 mmol/l (22-30); CHLORIDE 108 mmol/l (95-108); CREATININE 0.6 mg/dL (0.7-1.3); GFR > 60 ML/MIN (>=60 (CALC)); GFR FOR AFR.AMER. > 60 ML/MIN (>=60 (CALC)); MAGNESIUM 1.4 mg/dL (1.6-2.3); POTASSIUM 4.1 mmol/l (3.5-5.1); SODIUM 139 mmol/l (137-146)
[2020-02-26 04:03] VITALS: BP 115/73
[2020-02-26 08:00] VITALS: BP 107/65
[2020-02-26 11:05] VITALS: BP 114/62
[2020-02-26 15:15] VITALS: BP 98/55
[2020-02-26 19:14] VITALS: BP 119/71
[2020-02-27] VITALS: BP 120/78
[2020-02-27 04:00] VITALS: BP 117/74
[2020-02-27 08:00] VITALS: BP 114/76
[2020-02-27 10:56] VITALS: BP 117/75
[2020-02-27 15:00] VITALS: BP 94/52
[2020-02-27 18:55] VITALS: BP 108/67
[2020-02-28] VITALS (7 sets, daily range): BP systolic 102–127; BP diastolic 54–73
[2020-02-29 00:13] VITALS: BP 104/63
[2020-02-29 05:02] VITALS: BP 106/68
[2020-02-29 08:01] VITALS: BP 118/68
[2020-02-29] MEDS ORDERED: AMLODIPINE BESYL5 MG PO (10:23)
[2020-02-29] MEDS ORDERED: QUETIAPINE FUMA25 MG PO (10:23)
[2020-02-29] MEDS ORDERED: MAGNESIUM 400 M1 TAB PO (10:23)
[2020-02-29] MEDS ORDERED: LOPRESSOR 550 MG/TAB PO (10:23)
[2020-02-29 11:25] VITALS: BP 113/77
[2020-02-29 14:51] VITALS: BP 124/77
[2020-02-29 20:00] VITALS: BP 119/71
[2020-03-01] VITALS (7 sets, daily range): BP systolic 104–128; BP diastolic 52–88
[2020-03-02 04:12] VITALS: BP 114/64
[2020-03-02 05:13] LABS: HEMATOCRIT 35.8 % (39.0-50.0); HEMOGLOBIN 11.9 g/dl (14.0-18.0); MEAN CORPUSCULAR HGB 33.2 pG CALC (26.0-32.0); MEAN CORPUSCULAR HGB CONC 33.2 g/dL CAL (32.0-36.0); RED BLOOD COUNT 3.58 mill/uL (4.70-6.10); RED CELL DISTRI WIDTH 13.1 % (11.5-15.5)
[2020-03-02 05:28] LABS: ALBUMIN 2.5 g/dL (3.2-5.0); ALKALINE PHOSPHATASE 158 u/l (38-126); ANION GAP 8 (6-22 (CALC)); BUN 14 mg/dL (8-23); BUN/CREATININE RATIO 25 (12-20 (CALC)); CARBON DIOXIDE 26 mmol/l (22-30); CHLORIDE 109 mmol/l (95-108); CREATININE 0.5 mg/dL (0.7-1.3); GFR > 60 ML/MIN (>=60 (CALC)); GFR FOR AFR.AMER. > 60 ML/MIN (>=60 (CALC)); POTASSIUM 4.1 mmol/l (3.5-5.1); SGOT/AST 23 u/l (19-48); SODIUM 139 mmol/l (137-146); TOTAL PROTEIN 5.9 g/dL (6.3-8.2)
[2020-03-02 05:32] LABS: BILIRUBIN, TOTAL 0.8 mg/dL (0.0-1.4)
[2020-03-02 07:04] VITALS: BP 122/76
[2020-03-02 10:55] VITALS: BP 99/63
[2020-03-02 15:00] VITALS: BP 104/71
[2020-03-02 20:00] VITALS: BP 119/63
[2020-03-03] VITALS: BP 105/64
[2020-03-03 04:00] VITALS: BP 119/76
[2020-03-03 08:31] VITALS: BP 110/70
[2020-03-03 11:15] VITALS: BP 100/62
[2020-03-03 15:00] VITALS: BP 126/83
[2020-03-03 19:00] VITALS: BP 109/65
[2020-03-04 05:16] VITALS: BP 102/57
[2020-03-04 07:29] VITALS: BP 119/70
[2020-03-04 15:00] VITALS: BP 114/75
[2020-03-04 18:56] VITALS: BP 111/61
[2020-03-05 03:40] VITALS: BP 100/63
[2020-03-05 09:13] VITALS: BP 117/77
[2020-03-05 15:35] VITALS: BP 119/72
[2020-03-05 19:00] VITALS: BP 128/73
[2020-03-06 04:14] VITALS: BP 113/68
[2020-03-06 09:53] VITALS: BP 120/66
[2020-03-06 09:56] VITALS: BP 120/66
== END 2020-03-06 14:26 | disposition home or self-care (01) | DRG 871 ==
LOC: ED 18:18 → ED-I 23:23 → ED 23:47 → ICU 23:59 → MS2 23:59 → ICU 02-03 12:05 → MS2 02-12 13:56
PROVIDERS: Emergency Medicine; Internal Medicine; Nurse Practitioner; Nurse Practitioner Family; ADMIT Internal Medicine; ATTEND Internal Medicine
DX: A41.51 Sepsis due to Escherichia coli [E. coli] (principal); U07.1 COVID-19; I48.20 Chronic atrial fibrillation, unspecified; E87.2 Acidosis; F10.239 Alcohol dependence with withdrawal, unspecified; K80.00 Calculus of gallbladder with acute cholecystitis without obstruction; E51.2 Wernicke's encephalopathy; I16.0 Hypertensive urgency; I10 Essential (primary) hypertension; F10.229 Alcohol dependence with intoxication, unspecified; E87.6 Hypokalemia; D69.6 Thrombocytopenia, unspecified; E83.42 Hypomagnesemia; K70.30 Alcoholic cirrhosis of liver without ascites; K70.10 Alcoholic hepatitis without ascites; T63.421A Toxic effect of venom of ants, accidental (unintentional), initial encounter; Y90.6 Blood alcohol level of 120-199 mg/100 ml; Z59.0 Homelessness
CPT/HCPCS: A9537; J1650; J2060; J2805; J3475